=== PATIENT | male | born 1970 | race Caucasian/White ===

== ENCOUNTER 2017-01-19 13:41 | Emergency (ER) | payer BC ==
[2017-01-19 13:44] VITALS: BMI 31.1
--- NOTE | 2017-01-19 14:02 | PDOC ---
History of Present Illness <Contreras Carvalho - Last Filed: 01/19/17 16:21> - General History Source: Patient Exam Limitations: No Limitations - History of Present Illness Initial Comments: 01/19/17 14:20 The patient is a 46 year old male with a significant PMH of asthma who presents to the emergency department with chest pain beginning approximately yesterday. The patient describes the chest pain as continuous and radiating to his back. The patient also reports that he had limited movement in his left arm beginning this morning. 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 The patient denies shortness of breath, headache and dizziness. Denies fever, chills, nausea, vomit, diarrhea and constipation. Denies dysuria, frequency, urgency and hematuria. Allergies: Peanuts, Shellfish Social history: No reported cigarette, alcohol, or drug use. PCP: Dr. Zimmer <Kenneth Burden - Last Filed: 01/19/17 18:05> - General Chief Complaint: Chest Pain Stated Complaint: CHEST PAIN Time Seen by Provider: 01/19/17 14:02 Past History - Past Medical History Other medical history: denies - Psycho/Social/Smoking Cessation Hx Suicidal Ideation: No Smoking History: Never smoked Information on smoking cessation initiated: No Hx Alcohol Use: No Drug/Substance Use Hx: No Substance Use Type: None <Contreras Carvalho - Last Filed: 01/19/17 16:21> <Kenneth Burden - Last Filed: 01/19/17 18:05> - Past Medical History Allergies/Adverse Reactions: Allergies Allergy/AdvReac Type Severity Reaction Status Date / Time peanut Allergy Verified 01/19/17 13:44 shellfish derived Allergy Verified 01/19/17 13:44 Home Medications: Ambulatory Orders Ibuprofen 800 mg PO TID #30 tablet 01/19/17 Ondansetron [Zofran *Odt*] 8 mg SL TID #30 od.tablet MDD 3 01/19/17 Oxycodone HCl/Acetaminophen [Percocet 5-325 mg Tablet] 1 tab PO Q6H #20 tablet MDD 6 01/19/17 Review of Systems - Review of Systems Comments:: 01/19/17 14:21 GENERAL/CONSTITUTIONAL: No fever or chills. No weakness. HEAD, EYES, EARS, NOSE AND THROAT: No change in vision. No ear pain or discharge. No sore throat. CARDIOVASCULAR:(+) Chest pain. No shortness of breath. RESPIRATORY: No cough, wheezing, or hemoptysis. GASTROINTESTINAL: No nausea, vomiting, diarrhea or constipation. GENITOURINARY: No dysuria, frequency, or change in urination. MUSCULOSKELETAL: No joint or muscle swelling or pain. No neck or back pain. SKIN: No rash NEUROLOGIC: No headache, vertigo, loss of consciousness, or change in strength/ sensation. ENDOCRINE: No increased thirst. No abnormal weight change. HEMATOLOGIC/LYMPHATIC: No anemia, easy bleeding, or history of blood clots. ALLERGIC/IMMUNOLOGIC: No hives or skin allergy. <Kenneth Burden - Last Filed: 01/19/17 18:05> *Physical Exam - Vital Signs Last Vital Signs Temp Pulse Resp BP Pulse Ox 97.9 F 95 H 17 135/75 98 01/19/17 13:42 01/19/17 13:42 01/19/17 13:42 01/19/17 13:42 01/19/17 13:42 <Contreras Carvalho - Last Filed: 01/19/17 16:21> - Vital Signs Last Vital Signs Temp Pulse Resp BP Pulse Ox 97.9 F 91 H 17 135/75 98 01/19/17 13:42 01/19/17 13:59 01/19/17 13:42 01/19/17 13:42 01/19/17 13:59 - Physical Exam Comments: 01/19/17 14:21 GENERAL: Awake, alert, and fully oriented, in no acute distress HEAD: No signs of trauma EYES: PERRLA, EOMI, sclera anicteric, conjunctiva clear ENT: Auricles normal inspection, hearing grossly normal, nares patent, oropharynx clear without exudates. Moist mucosa NECK: Normal ROM, supple, no lymphadenopathy, JVD, or masses MUSCULOSKELETAL: (+) Exquisite left chest wall tenderness. LUNGS: Breath sounds equal, clear to auscultation bilaterally. No wheezes, and no crackles HEART: Regular rate and rhythm, normal S1 and S2, no murmurs, rubs or gallops ABDOMEN: Soft, nontender, normoactive bowel sounds. No guarding, no rebound. No masses EXTREMITIES: Normal range of motion, no edema. No clubbing or cyanosis. No cords, erythema, or tenderness NEUROLOGICAL: Cranial nerves II through XII grossly intact. Normal speech, normal gait SKIN: Warm, Dry, normal turgor, no rashes or lesions noted. <Kenneth Burden - Last Filed: 01/19/17 18:05> Heart Score/ECG Review #1 01/19/17 14:22 Vent rate: 91 bpm GA interval: 142 ms QRS duration: 88 ms QT/QTc: 358/440 ms P-R-T axes: 49 10 33 Normal sinus rhythm Normal ECG <Kneneth Burden - Last Filed: 01/19/17 18:05> ED Treatment Course - LABORATORY CBC & Chemistry Diagram: 01/19/17 14:20 01/19/17 14:20 <Contreras Carvalho - Last Filed: 01/19/17 16:21> - LABORATORY CBC & Chemistry Diagram: 01/19/17 14:20 01/19/17 14:20 - RADIOLOGY Radiograph Interpretation: 01/19/17 16:28 Exam: Chest X-Ray Interpreted & read by Dr. Carvalho Impression: Normal <BertramKenneth - Last Filed: 01/19/17 18:05> *DC/Admit/Observation/Transfer - Discharge Dispostion Admit: No - Attestations Physician Attestion: 01/19/17 14:02 I, Dr. Contreras Carvalho, attest that this document has been prepared under my direction and personally reviewed by me in its entirety. I further attest, that it accurately reflects all work, treatment, procedures and medical decision -making performed by me. <Contreras Carvalho - Last Filed: 01/19/17 16:21> - Attestations Scribe Attestion: 01/19/17 14:23 Documentation prepared by Kenneth Burden, acting as biomedical engineering technologist for Contreras Carvalho DO. <BertramKenneth - Last Filed: 01/19/17 18:05> Diagnosis at time of Disposition: Musculoskeletal chest pain - Prescriptions Prescriptions: Ibuprofen 800 mg PO TID #30 tablet Oxycodone HCl/Acetaminophen [Percocet 5-325 mg Tablet] 1 tab PO Q6H #20 tablet MDD 6 Ondansetron [Zofran *Odt*] 8 mg SL TID #30 od.tablet MDD 3 - Referrals Referrals: Marcel Zimmer MD [Primary Care Provider] - - Patient Instructions Printed Discharge Instructions: DI for Atypical Chest Pain, DI for Musculoskeletal Pain Additional Instructions: Mr Colon- Your EKG, your Blood work and your CXR are all good. Motrin is for pain/inflammation and you can take it three times a day with food. if the motrin is not enough for your pain you can take PERCOCET four times a day but remember, it is a narcotic so only take it if you absolutely have to. Percocet will upset your stomach - so if that happens take the zofran.... just let it melt on your tongue. Return to us if worse- See your doctor next week Hope you feel much better soon- Best- Dr. Contreras Carvalho
[2017-01-19] MEDS ORDERED: KETOROLAC TROMETHAMINE 30 MG/1 ML VIAL IVPUSH ONE (14:18)
[2017-01-19] MEDS ORDERED: KETOROLAC TROMETHAMINE 30 MG/1 ML VIAL ONE (14:29)
[2017-01-19 15:05] LABS: BASOPHIL 0.3 % (0-2.0); EOSINOPHIL 2.2 % (0-4.5); MCH 29.3 pg (25.7-33.7); MCHC 34.1 g/dl (32.0-35.9); MEAN CELL VOLUME 85.9 fl (80-96); MEAN PLT VOLUME 7.4 fl (7.5-11.1); NEUTROPHILS 74.1 % (42.8-82.8); PLATELET COUNT 289 K/MM3 (134-434); RDW 13.3 % (11.9-15.9); WHITE BLOOD COUNT 12.9 K/mm3 (4.0-10.0)
[2017-01-19 15:21] LABS: INR 1.16 (0.82-1.09); PROTHROMBIN TIME (PATIENT) 12.8 SEC (9.98-11.88)
[2017-01-19 15:34] LABS: ALBUMIN 3.9 g/dl (3.4-5.0); ANION GAP 6 (8-16); BILIRUBIN,TOTAL 0.6 mg/dL (0.2-1.0); CALCIUM 8.8 mg/dL (8.5-10.1); CO2 31 mmol/L (21-32); CREATININE 0.8 mg/dL (0.7-1.3); GLUCOSE,RANDOM 90 mg/dL (74-106); SGOT/AST 13 U/L (15-37); SGPT/ALT 24 U/L (12-78); TOT PROT 7.1 g/dl (6.4-8.2)
[2017-01-19 15:36] LABS: ALK PHOS 99 U/L (45-117); CPK 64 IU/L (39-308); TROPONIN I < 0.02 ng/ml (0.00-0.05)
[2017-01-19 17:05] VITALS: BP 134/80; PULSE 87; TEMP 98.3
--- NOTE | 2017-01-20 13:21 | EKG ---
Test Reason : Blood Pressure : / mmHG Vent. Rate : 091 BPM Atrial Rate : 091 BPM P-R Int : 142 ms QRS Dur : 088 ms QT Int : 358 ms P-R-T Axes : 049 010 033 degrees QTc Int : 440 ms NORMAL SINUS RHYTHM INCOMPLETE RBBB BASELINE ARTIFACTS NO PREVIOUS ECGS AVAILABLE REPEAT EKG IF CLINICALLY INDICATED Confirmed by NICHOLAS GARCIAS MD ([id number]) on 01/20/2017 1:21:05 PM Referred By: Confirmed By:NICHOLAS GARCIAS MD
== END 2017-01-19 17:04 | disposition home or self-care (01) ==
LOC: JER 13:41
PROC: 3E0333Z Introduction of Anti-inflammatory into Peripheral Vein, Percutaneous Approach (ICD-10-PCS; principal; 2017-01-19)
DX: R07.89 Other chest pain (principal)
CPT/HCPCS: 36415; 71010-TC; 80053; 84484; 85025; 85610; 93005; 93010; 99285-25